=== PATIENT | male | born 1985 | race Caucasian/White ===

== ENCOUNTER 2016-04-30 14:19 | Emergency (ER) | payer MEDICAID ==
[2016-04-30] MEDS ORDERED: oxyCOD/ACETAMIN 5 MG/325 MG TABLET PO STA (17:24)
[2016-04-30] MEDS ORDERED: CEPHALEXIN 250 MG CAPSULE PO STA (17:25)
[2016-04-30] MEDS ORDERED: oxyCOD/ACETAMIN 5 MG/325 MG TABLET PO ONE (17:39)
[2016-04-30] MEDS ORDERED: CEPHALEXIN 250 MG CAPSULE PO ONE (17:39)
== END 2016-04-30 17:46 | disposition home or self-care (01) ==
DX: K08.89 Other specified disorders of teeth and supporting structures (principal); K02.9 Dental caries, unspecified; F17.200 Nicotine dependence, unspecified, uncomplicated
CPT/HCPCS: 99283; A9270

== ENCOUNTER 2016-05-13 14:06 | Emergency (ER) | payer MEDICAID ==
[2016-05-13] MEDS ORDERED: ACETAMINOPHEN 500 MG TABLET PO STA (15:18)
[2016-05-13] MEDS ORDERED: ACETAMINOPHEN 500 MG TABLET PO ONE (15:24)
== END 2016-05-13 16:14 | disposition home or self-care (01) ==
DX: S30.0XXA Contusion of lower back and pelvis, initial encounter (principal); W11.XXXA Fall on and from ladder, initial encounter; Y93.89 Activity, other specified; Y92.008 Other place in unspecified non-institutional (private) residence as the place of occurrence of the external cause; Y99.8 Other external cause status; F17.200 Nicotine dependence, unspecified, uncomplicated
CPT/HCPCS: 72170; 99283; A9270

== ENCOUNTER 2017-04-06 13:10 | Emergency (ER) | payer MEDICAID ==
--- NOTE | 2017-04-06 14:55 | ED Physician Documentation ---
PD HPI HEENT - Stated complaint Stated Complaint: TOOTH PAIN - Chief complaint Chief Complaint: General - History obtained from History obtained from: Patient, Family - History of Present Illness Timing - onset: How many days ago (2) Timing - duration: Days (2) Timing - details: Abrupt onset Pain level max: 8 Pain level now: 8 Location: Tooth (R lower molar) Improves: Medication (motrin) Associated symptoms: No: Fever, Congestion, Rhinorrhea, Trismus, Unable to swallow, Swollen nodes, Facial swelling, Headache - Additional information Additional information: Patient is a 31-year-old male who presents to the emergency department with dental pain. States that he felt a tooth break a few days ago. Increasing pain since that time. He tried to see [facility] today, but they are closed. Called [facility] in [place] and cannot be seen for 2 weeks. Came here for evaluation. No fevers. No vomiting. Review of Systems Constitutional: denies: Fever, Chills GI: denies: Abdominal Pain, Nausea, Vomiting, Diarrhea Skin: denies: Rash Musculoskeletal: denies: Neck pain, Back pain Neurologic: denies: Headache PD PAST MEDICAL HISTORY - Past Medical History Past Medical History: Yes Respiratory: Asthma, Shortness of breath Endocrine/Autoimmune: None Psych: Panic attacks, Post traumatic stress disorder Musculoskeletal: Chronic back pain - Past Surgical History Past Surgical History: Yes HEENT: Myringotomy (tubes) - Present Medications Home Medications: Ambulatory Orders Medication Instructions Recorded Confirmed Oxycodone HCl/Acetaminophen 1 - 2 each PO Q6H PRN #14 tablet 04/06/17 [Percocet 5-325 mg Tablet] Penicillin V Potassium 500 mg PO Q6HR #40 tablet 04/06/17 - Allergies Allergies/Adverse Reactions: Allergies Allergy/AdvReac Type Severity Reaction Status Date / Time acetaminophen [From Vicodin] Allergy Nausea Verified 04/06/17 13:56 hydrocodone bitartrate * Allergy Nausea Verified 04/06/17 13:56 [From Vicodin] ibuprofen Allergy Unknown Verified 04/06/17 13:56 - Social History Does the pt smoke?: Yes Smoking Status: Current every day smoker Does the pt drink ETOH?: No Does the pt have substance abuse?: No - Immunizations Immunizations are current?: No - POLST Patient has POLST: No PD ED PE NORMAL - Vitals Vital signs reviewed: Yes - General General: Alert and oriented X 3, No acute distress, Well developed/nourished - HEENT HEENT: PERRL, Moist mucous membranes - Neck Neck: Supple, no meningeal sign, No adenopathy - Cardiac Cardiac: RRR, No murmur - Respiratory Respiratory: No respiratory distress, Clear bilaterally - Derm Derm: Warm and dry - Neuro Neuro: Alert and oriented X 3 - Psych Psych: Normal mood, Normal affect PD ED PE EXPANDED - HEENT HEENT Visual: 1 - tenderness (fractured tooth. TTP. no abscess.) Results - Vitals Vitals: Vital Signs - 24 hr 04/06/17 04/06/17 13:18 15:08 Temperature 36.7 C 37.1 C Heart Rate 124 H 114 H Respiratory 20 18 Rate Blood Pressure 124/80 114/68 O2 Saturation 98 98 Oxygen O2 Source Room air PD MEDICAL DECISION MAKING - ED course Complexity details: considered differential, d/w patient ED course: Patient is a 31-year-old male with a fractured tooth and dental caries. No drainable abscess. No Alphonso's angina. Will place on antibiotics and pain medication for home. Cavit was also placed over the tooth. Patient counseled regarding signs and symptoms for which I believe and urgent re-evaluation would be necessary. Patient with good understanding of and agreement to plan and is comfortable going home at this time This document was made in part using voice recognition software. While efforts are made to proofread this document, sound alike and grammatical errors may occur. No facial swelling or cellulitis Departure - Departure Disposition: 01 Home, Self Care Clinical Impression: Dental caries Condition: Good Instructions: ED Tooth Pain, ED Cavity Dental Follow-Up: your,dentist as soon as possible [Other] Prescriptions: Penicillin V Potassium 500 mg PO Q6HR #40 tablet Oxycodone HCl/Acetaminophen [Percocet 5-325 mg Tablet] 1 - 2 each PO Q6H PRN # 14 tablet PRN Reason: pain Comments: Return if you worsen. Take all antibiotics until gone. It is important that you follow-up closely with the dentist for further evaluation and care. Do not drink alcohol or drive while on narcotic pain medicine. Note that many narcotic pain relievers also contain tylenol/acetaminophen. Please ensure that your total dose of acetaminophen from all sources does not exceed 3 grams (3000mg) per day. You may constipated on this medication, take a stool softener such as "Colace" twice a day while you are on it. Also recommend a [id number] laxative such as senna or MiraLAX any day that you do not have a bowel movement. If you received narcotic pain medication in the emergency department, do not drive or operate machinery for the next 24 hours. Discharge Date/Time: 04/06/17 15:15
[2017-04-06 15:09] VITALS: BP 114/68
== END 2017-04-06 15:15 | disposition home or self-care (01) ==
LOC: ED 13:10
DX: K02.9 Dental caries, unspecified (principal); J45.909 Unspecified asthma, uncomplicated; F17.200 Nicotine dependence, unspecified, uncomplicated
CPT/HCPCS: 99283